=== PATIENT | male | born 1985 | race Caucasian/White ===

== ENCOUNTER 2022-02-28 00:10 | Emergency (ER) | payer MEDICAID ==
[~2022-02-28] VITALS: Ht 182.9 cm; Wt 100.0 kg
[2022-02-28 00:29] VITALS: BP 136/97
[2022-02-28] MEDS ORDERED: TETanus/Pertussis (Acell)/Diphther VAC/PF (Tdap-Adult) 0.5ml syringe IMVAC ONE (00:40)
== END 2022-02-28 01:05 | disposition home or self-care (01) ==
LOC: ER 00:12
DX: S61.211A Laceration without foreign body of left index finger without damage to nail, initial encounter (principal); W26.0XXA Contact with knife, initial encounter; Y93.89 Activity, other specified; Y92.89 Other specified places as the place of occurrence of the external cause; Y99.8 Other external cause status
CPT/HCPCS: 12001; 90471; 90715; 99283; A6449